=== PATIENT | female | born 1990 | race American Indian/Alaskan Native ===

== ENCOUNTER 2020-05-07 11:00 | Emergency (ER) | payer OTHER ==
[2020-05-07 11:07] VITALS: BP 108/72
--- NOTE | 2020-05-07 12:23 | Emergency Department Report ---
ED Rash HPI - HPI Chief Complaint: Allergic Reaction Stated Complaint: ALLERGIC REACTION Time Seen by Provider: 05/07/20 12:11 Duration: 5 Days Location: Upper Extremities Suspected Cause: Unknown Rash Symptoms: Yes Itching, No Facial Swelling, No Tongue/Oral Swelling, No Breathing Difficulties, No Choking Sensation, No Wheezing/Dyspnea, No Peeling, No Blistering, No Fever, No Lightheaded, No Malaise, No Myalgias Severity: mild Other History: This 30-year-old female presents the ED with left hand rash and hives x1 week. Patient states that she noticed it about a week ago and took Benadryl and use of cortisone cream which gave her some relief. Patient states yesterday the itching began again. She states she is unsure of any irritant. And is only allergic to penicillin which she has not been in contact with. ED Review of Systems ROS: Stated complaint: ALLERGIC REACTION Other details as noted in HPI Comment: All other systems reviewed and negative ED Past Medical Hx - Past Medical History Previous Medical History?: No - Surgical History Past Surgical History?: No - Social History Smoking Status: Never Smoker Substance Use Type: None - Medications Home Medications: Home Medications Medication Instructions Recorded Confirmed Last Taken Type Hydrocortisone 0.5% (Nf) 1 applicatio TP TID #1 tube 05/07/20 Unknown Rx [Hydrocortisone 0.5% OINT] predniSONE [Deltasone] 20 mg PO QDAY #5 tab 05/07/20 Unknown Rx Rash Exam - Exam General: Vital signs noted. No distress. Alert and acting appropriately. HEENT: No Periorbital Edema, No Conjuctival Injection, No Chemosis, No Perioral Edema, No Tongue Edema, No Uvular Edema, No Compromised Airway, No Drooling Lungs: Yes Good Air Exchange (Normal Breath Sounds), No Wheezes, No Ronchi, No Stridor, No Cough, No Labored Respirations, No Retractions, No Use of Accessory Muscles, No Other Abnormal Lung Sounds Heart: Yes Regular, No Murmur Skin: Yes Urticarial Rash, Yes Maculopapular Rash, No Morbilliform rash, No Bulla(e), No Excoriations, No Weeping, No Tenderness, No Erythema, No Edema, No Encrustations, No Other Other: Positive: Abdomen Normal, Neurologic Normal, Musculoskeletal Normal ED Course Vital Signs 05/07/20 11:06 Temperature 98.6 F Pulse Rate 95 H Respiratory 17 Rate Blood Pressure 108/72 O2 Sat by Pulse 96 Oximetry ED Medical Decision Making - Medical Decision Making This 30-year-old female presents the ED with left hand allergic dermatitis. Discussed with patient to continue taking Benadryl. Discussed topical corticosteroids. Discussed to avoid contact with irritants. Discussed follow-up with primary care physician. Patient is in no acute distress or respiratory distress. Vital signs are normal. - Differential Diagnosis Allergic dermatitis, contact dermatitis, utricular Critical care attestation.: If time is entered above; I have spent that time in minutes in the direct care of this critically ill patient, excluding procedure time. ED Disposition Clinical Impression: Allergic dermatitis Disposition: [id number] TO HOME OR SELFCARE Is pt being admited?: No Does the pt Need Aspirin: No Condition: Stable Instructions: Contact Dermatitis (ED) Additional Instructions: Make sure to follow up with the primary care physician as discussed. Take all your medications as you've been prescribed. If you have any worsening symptoms or develop new symptoms please return to ED immediately. Referrals: [facility] [Outside] - 3-5 Days [facility] [Outside] - 3-5 Days Forms: Work/School Release Form(ED) Time of Disposition: 12:25
== END 2020-05-07 12:13 | disposition home or self-care (01) ==
LOC: ED 11:00
DX: L23.9 Allergic contact dermatitis, unspecified cause (principal); Z79.899 Other long term (current) drug therapy; Z88.0 Allergy status to penicillin
CPT/HCPCS: 99282